=== PATIENT | female | born 1965 | race African-American/Black ===

== ENCOUNTER → 2019-04-20 | Day surgery (SDC) | payer MEDICAID ==
[~2019-04-20] VITALS: Ht 160 cm; Wt 47.2 kg
[~2019-04-20] MED LIST: ATOR20TA PO; BALANCED SALT IRRIG SOLN 15ML ONE; BALANCED SALT IRRIG SOLN COMB1 500ML OP SCH; BRIM5DRO6 OP; BUPIVACAINE HCL/PF 0.75% (7.5MG/ML) 10ML ONE; CHOL100053 PO; CIPROFLOXACIN 0.3% OPHTH SOLN 2.5ML ONE; CLON-457 PO; COR12 PO; CYCLOPENTOLATE HCL 1% OPHTH DROPS 2ML LEFTEYE NR; CYCLOPENTOLATE HCL 1% OPHTH DROPS 2ML ONE; DIPHENHYDRAMINE 50MG/ML VIAL ONE; DORZ10DR8 OP; FENTANYL CITRATE/PF 50MCG/ML 2ML VIAL ONE; GLIM2TAB2 PO; HYALURONATE SODIUM 14 MG/ML 0.85ML SYRINGE IO ONE; HYDRALAZINE 20MG/ML VIAL ONE; HYDROMORPHONE HCL/PF 2MG/ML CPJ IV PRN; LATA2.5D2 OP; LIDOCAINE HCL 2%/EPINEPHRINE 1:100,000 20 ML VIAL INFIL ONE; LIDOCAINE HCL/PF 2% 20 MG/ML 10ML VIAL ONE; MIDAZOLAM HCL 2 MG/2 ML VIAL ONE; MYCO500T PO; NEO/POLYMYX B SULF/DEXAMETH OPHTH OINT 3.5GM ONE; OMEG-118 PO; ONDANSETRON HCL 4MG/2ML INJ IV PRN; PHENYLEPHRINE HCL 10% OPHTH DROPS 5ML LEFTEYE NR; PHENYLEPHRINE HCL 10% OPHTH DROPS 5ML ONE; PRED2.5T4 PO; PREDNISOLONE ACETATE 1% OPHTH DROPS 1ML ONE; SODIUM CHLORIDE 0.9% 10ML VIAL ONE; TACR1TAB PO; TETRACAINE 0.5% OPHTH DROPS 4ML ONE; TROPICAMIDE 1% OPHTH DROPS 15ML LEFTEYE NR; TROPICAMIDE 1% OPHTH DROPS 15ML ONE; TRYPAN BLUE 0.5 ML DISP.SYRIN IO ONE
== END | disposition home or self-care (01) ==
LOC: OR 09:10
PROVIDERS: ATTEND Ophthalmology
DX: E11.36 Type 2 diabetes mellitus with diabetic cataract (principal); H25.89 Other age-related cataract; E83.52 Hypercalcemia; E78.00 Pure hypercholesterolemia, unspecified; Z94.0 Kidney transplant status
CPT/HCPCS: 66982; 82962; J0360; J1200; J2250; J2405; J3010; J3490; V2632; Q9957